=== PATIENT | female | born 1985 | race African-American/Black ===

== ENCOUNTER 2020-09-29 18:00 | Emergency (ER) | payer OTHER ==
[~2020-09-29] VITALS: Ht 157.5 cm; Wt 65.9 kg
[2020-09-29 23:15] LABS: HEMATOCRIT 43.3 % (37.0-47.0); HEMOGLOBIN 14.2 g/dl (12.5-16.0); MEAN CELL VOLUME 96 fl (80.0-100.0); MEAN CORPUSCULAR HEMOGLOBIN 31 pg (27.0-31.0); MEAN CORPUSCULAR HGB CONC 33 g/dl (33.0-37.0); PLATELET COUNT 52 K/mm3 (130-400); RED BLOOD COUNT 4.53 M/mm3 (4.10-5.30); REDCELL DISTRIBUTION WIDTH-CV 12.2 % (11.5-14.5)
[2020-09-29 23:27] LABS: ALBUMIN 4.8 gm/dL (3.5-5.0); BILIRUBIN,TOTAL 0.4 mg/dL (0.0-1.0); C-REACTIVE PROTEIN 1.4 mg/dL (0.0-0.9); CALCIUM 9.5 mg/dL (8.4-10.2); CREATININE, serum 0.84 (0.52-1.25); POTASSIUM 4.1 mmol/L (3.4-5.0); TOTAL PROTEIN 9.2 gm/dL (6.4-8.2)
[2020-09-29 23:57] LABS: INR 1.1 (0.8-3.0)
[2020-09-30 00:17] LABS: PARTIAL THROMBOPLASTIN TIME 17.8 SECONDS (26.0-37.0)
[2020-09-30 00:38] LABS: EOSINOPHIL 2 % (0-4); LYMPHOCYTE 52 % (20.0-51.0); NEUTROPHILS 38 % (42.0-75.2); PLATELET ESTIMATE DECREASED (NORMAL)
[2020-09-30 02:27] VITALS: BP 117/85; PULSE 70; TEMP 98.1
== END 2020-09-30 02:27 | disposition home or self-care (01) ==
LOC: EDBD 18:00 → COL.ER 18:00
PROVIDERS: Emergency Medicine
DX: H43.11 Vitreous hemorrhage, right eye (principal)
CPT/HCPCS: J2405; J7030; Q9967